=== PATIENT | male | born 1960 | race American Indian/Alaskan Native ===

== ENCOUNTER 2021-09-28 12:55 | Outpatient (CLI) | payer MEDICAID ==
--- NOTE | 2021-09-28 14:43 | XRay Report ---
RIGHT SHOULDER 3 VIEWS INDICATION: PAIN IN RIGHT SHOULDER. COMPARISON: None. IMPRESSION: The AC joint is widened up to 2.8 cm. There is suggestion of bony resorption or surgical resection of the distal right clavicle, correlate with history. Mild degenerative changes are ident ified at the glenohumeral joint. Small calcifications overlie the course of the infraspinatus tendon which probably represents calcific tendinitis. No acute osseous abnormality or bone lesion is appreci ated. Signer Name: Derian Corral Jr, MD Signed: 09/28/2021 2:38 PM Workstation Name: [id number]
== END 2021-09-28 12:56 | disposition home or self-care (01) ==
LOC: XRAY 12:55
PROVIDERS: ATTEND Orthopaedic Surgery
DX: M19.011 Primary osteoarthritis, right shoulder (principal)